=== PATIENT | male | born 1965 | race Caucasian/White ===

== ENCOUNTER 2020-09-23 18:09 | Inpatient (IN) | payer OTHER ==
[2020-09-23 19:03] VITALS: BMI 28.8
[2020-09-23] MEDS ORDERED: ACETAMINOPHEN 325 MG TABLET (FP) PO PRN ×2 (20:21)
[2020-09-23] MEDS ORDERED: MAG HYDROX/AL HYDROX/SIMETH 30 ML UNIT-DOSE CUP PO PRN (20:21)
[2020-09-23] MEDS ORDERED: MENTHOL/PHENOL 1 EACH UD MM PRN (20:21)
[2020-09-23] MEDS ORDERED: MAGNESIUM HYDROX 2400MG/30ML ORAL SUSPENSION 30 ML CUP PO PRN (20:21)
[2020-09-23] MEDS ORDERED: MAGNESIUM CITRATE 300 ML BOTTLE PO PRN (20:21)
[2020-09-23] MEDS ORDERED: IBUPROFEN 400 MG TABLET (FP) PO PRN (20:21)
[2020-09-23] MEDS ORDERED: LORazepam 1 MG TABLET PO PRN ×2 (20:21→23:43)
[2020-09-23] MEDS ORDERED: diazePAM 5 MG TABLET PO SCH (23:00)
[2020-09-23] MEDS: ONDANSETRON *ODT* 4 MG TABLET SL PRN (23:09)
[2020-09-23] MEDS: LORazepam 2 MG TABLET PO SCH ×5 (23:10→23:52)
[2020-09-23] MEDS ORDERED: diazePAM 5 MG TABLET PO PRN (23:17)
[2020-09-23] MEDS: MELATONIN 5 MG TABLETS PO SCH (23:25)
[2020-09-23] MEDS: THIAMINE HCL 100 MG TABLET (FP) PO SCH (23:25)
[2020-09-24] MEDS ORDERED: LORazepam 1 MG TABLET PO PRN (00:07)
[2020-09-24] MEDS ORDERED: LORazepam 1 MG TABLET PO SCH ×2 (05:00)
[2020-09-24] MEDS: LORazepam 2 MG TABLET PO SCH ×4 (05:28→22:00)
[2020-09-24] MEDS: ONDANSETRON *ODT* 4 MG TABLET SL PRN (05:29)
[2020-09-24 10:07] LABS: ALBUMIN 3.5 g/dl (3.4-5.0); BLOOD UREA NITROGEN 8.9 mg/dL (7-18)
[2020-09-24 10:09] LABS: HEMOGLOBIN 13.9 GM/dL (11.7-16.9); MCH 36.1 pg (25.7-33.7); MCHC 33.8 g/dl (32.0-35.9); MEAN CELL VOLUME 106.6 fl (80-96); MEAN PLT VOLUME 8.5 fl (7.5-11.1); PLATELET COUNT 65 10^3/uL (134-434); RBC 3.85 M/mm3 (4.00-5.60); RDW 14.4 % (11.9-15.9); WHITE BLOOD COUNT 2.5 K/mm3 (4.0-10.0)
[2020-09-24 10:10] LABS: CALCIUM 7.7 mg/dL (8.5-10.1)
[2020-09-24 10:11] LABS: CREATININE 0.8 mg/dL (0.55-1.3)
[2020-09-24 10:13] LABS: TOT PROT 6.8 g/dl (6.4-8.2)
[2020-09-24] MEDS: PRENATAL VITAMINS W/ FOLIC ACID TABLET (FP) PO SCH (10:16)
[2020-09-24] MEDS: LISINOPRIL 5 MG TABLET PO SCH (10:16)
[2020-09-24] MEDS: PIOGLITAZONE HCL 30 MG TABLET PO SCH (10:45)
[2020-09-24] MEDS ORDERED: INSULIN SLIDING SCALE (NOVOLOG) 1 VIAL SQ SCH (11:00)
[2020-09-24] MEDS ORDERED: POTASSIUM CHLORIDE TABS 20 MEQ TABLET.ER (FP) PO ONE ×2 (11:29→11:32)
[2020-09-24] MEDS: BISMUTH SUBSALICYLATE 524 MG/30 ML PO PRN ×2 (12:58→17:28)
[2020-09-24] MEDS ORDERED: TRIMETHOBENZAMIDE HCL 200MG/2ML INJ IM PRN (15:49)
[2020-09-24] MEDS: METHOCARBAMOL 500 MG TABLET PO PRN (17:31)
[2020-09-24] MEDS ORDERED: traZODone HCL 50 MG TABLET (FP) PO ONE (20:46)
[2020-09-24] MEDS: THIAMINE HCL 100 MG TABLET (FP) PO SCH (21:59)
[2020-09-24] MEDS: MELATONIN 5 MG TABLETS PO SCH (21:59)
[2020-09-25] MEDS ORDERED: LORazepam 0.5 MG TABLET PO PRN ×2
[2020-09-25] MEDS ORDERED: LORazepam 0.5 MG TABLET PO SCH ×2 (05:00)
[2020-09-25] MEDS ORDERED: diazePAM 5 MG TABLET PO SCH (06:00)
[2020-09-25] MEDS: PIOGLITAZONE HCL 30 MG TABLET PO SCH (06:21)
[2020-09-25] MEDS: LORazepam 1 MG TABLET PO SCH ×4 (06:21→21:59)
[2020-09-25 10:19] LABS: HEMATOCRIT 42.5 % (35.4-49); HEMOGLOBIN 14.4 GM/dL (11.7-16.9); MCH 36.3 pg (25.7-33.7); MCHC 33.8 g/dl (32.0-35.9); MEAN CELL VOLUME 107.2 fl (80-96); MEAN PLT VOLUME 8.8 fl (7.5-11.1); PLATELET COUNT 71 10^3/uL (134-434); RBC 3.97 M/mm3 (4.00-5.60); RDW 14.5 % (11.9-15.9)
[2020-09-25 10:27] LABS: ALBUMIN 3.4 g/dl (3.4-5.0); BLOOD UREA NITROGEN 7.3 mg/dL (7-18); CALCIUM 7.8 mg/dL (8.5-10.1); MAGNESIUM 1.4 mg/dL (1.8-2.4)
[2020-09-25 10:30] LABS: PHOSPHOROUS 1.9 mg/dL (2.5-4.9)
[2020-09-25] MEDS: PRENATAL VITAMINS W/ FOLIC ACID TABLET (FP) PO SCH (10:31)
[2020-09-25] MEDS: LISINOPRIL 5 MG TABLET PO SCH (10:32)
[2020-09-25 10:33] LABS: BILIRUBIN,TOTAL 5.6 mg/dL (0.2-1); TOT PROT 6.8 g/dl (6.4-8.2)
[2020-09-25] MEDS: MAGNESIUM OXIDE 400 MG TABLET (FP) PO SCH ×2 (14:21→21:59)
[2020-09-25] MEDS: CALCIUM (OYSTER SHELL) 500 MG TABLET (FP) PO SCH ×2 (14:21→21:59)
[2020-09-25] MEDS: traZODone HCL 100 MG TABLET (FP) PO SCH (21:59)
[2020-09-25] MEDS: THIAMINE HCL 100 MG TABLET (FP) PO SCH (21:59)
[2020-09-25] MEDS: METHOCARBAMOL 500 MG TABLET PO PRN (23:33)
[2020-09-26] MEDS ORDERED: LORazepam 0.5 MG TABLET PO PRN
[2020-09-26] MEDS ORDERED: LORazepam 0.5 MG TABLET PO ONE ×2 (05:00)
[2020-09-26] MEDS: LORazepam 0.5 MG TABLET PO SCH ×4 (05:39→22:26)
[2020-09-26] MEDS ORDERED: diazePAM 5 MG TABLET PO SCH (06:00)
[2020-09-26] MEDS: PIOGLITAZONE HCL 30 MG TABLET PO SCH (06:40)
[2020-09-26] MEDS: GABAPENTIN 100 MG CAPSULE PO SCH (07:36)
[2020-09-26] MEDS: PRENATAL VITAMINS W/ FOLIC ACID TABLET (FP) PO SCH (10:31)
[2020-09-26] MEDS: ESCITALOPRAM OXALATE 10 MG TABLET PO SCH (10:31)
[2020-09-26] MEDS: LISINOPRIL 5 MG TABLET PO SCH (10:31)
[2020-09-26] MEDS: CALCIUM (OYSTER SHELL) 500 MG TABLET (FP) PO SCH ×2 (10:31→22:27)
[2020-09-26] MEDS: MAGNESIUM OXIDE 400 MG TABLET (FP) PO SCH ×2 (10:31→22:27)
[2020-09-26 10:45] LABS: CALCIUM 8.1 mg/dL (8.5-10.1); MAGNESIUM 1.6 mg/dL (1.8-2.4)
[2020-09-26 10:47] LABS: PHOSPHOROUS 3.4 mg/dL (2.5-4.9)
[2020-09-26] MEDS: METHOCARBAMOL 500 MG TABLET PO PRN (17:10)
[2020-09-26] MEDS: THIAMINE HCL 100 MG TABLET (FP) PO SCH (22:27)
[2020-09-26] MEDS: traZODone HCL 100 MG TABLET (FP) PO SCH (22:27)
[2020-09-27] MEDS: METHOCARBAMOL 500 MG TABLET PO PRN (00:53)
[2020-09-27] MEDS ORDERED: LORazepam 0.5 MG TABLET PO ONE (05:00)
[2020-09-27] MEDS ORDERED: diazePAM 5 MG TABLET PO ONE (06:00)
[2020-09-27] MEDS: PIOGLITAZONE HCL 30 MG TABLET PO SCH (06:07)
[2020-09-27] MEDS: GABAPENTIN 100 MG CAPSULE PO SCH (07:04)
[2020-09-27 07:08] VITALS: BP 153/96; PULSE 65; TEMP 97.3
[2020-09-27] MEDS: LISINOPRIL 5 MG TABLET PO SCH (09:11)
[2020-09-27] MEDS: CALCIUM (OYSTER SHELL) 500 MG TABLET (FP) PO SCH (09:11)
[2020-09-27] MEDS: MAGNESIUM OXIDE 400 MG TABLET (FP) PO SCH (09:11)
[2020-09-27] MEDS: ESCITALOPRAM OXALATE 10 MG TABLET PO SCH (09:12)
[2020-09-27] MEDS: PRENATAL VITAMINS W/ FOLIC ACID TABLET (FP) PO SCH (09:12)
== END 2020-09-27 09:39 | disposition home or self-care (01) | DRG 897 ==
LOC: YASAS 18:09 → Y3N 20:31
PROVIDERS: ADMIT Allergy & Immunology; ATTEND Allergy & Immunology
PROC: HZ2ZZZZ Detoxification Services for Substance Abuse Treatment (ICD-10-PCS; principal; 2020-09-23)
DX: F10.230 Alcohol dependence with withdrawal, uncomplicated (principal); F19.282 Other psychoactive substance dependence with psychoactive substance-induced sleep disorder; F19.280 Other psychoactive substance dependence with psychoactive substance-induced anxiety disorder; F19.24 Other psychoactive substance dependence with psychoactive substance-induced mood disorder; F32.9 Major depressive disorder, single episode, unspecified; F41.9 Anxiety disorder, unspecified; I10 Essential (primary) hypertension; K70.30 Alcoholic cirrhosis of liver without ascites; R74.8 Abnormal levels of other serum enzymes; R74.01 Elevation of levels of liver transaminase levels; R73.03 Prediabetes; Z86.69 Personal history of other diseases of the nervous system and sense organs; Z88.8 Allergy status to other drugs, medicaments and biological substances
CPT/HCPCS: 36415; 80053; 82310; 82962; 83735; 84100; 84450; 84460; 85027; 86780; 93005; 93010; C9803; Q0162; U0003; U0005

== ENCOUNTER 2021-11-06 08:15 | Inpatient (IN) | payer OTHER ==
[2021-11-06 09:11] VITALS: BMI 25.0
[2021-11-06] MEDS ORDERED: MAGNESIUM HYDROX 2400MG/30ML ORAL SUSPENSION 30 ML CUP PO PRN (10:05)
[2021-11-06] MEDS ORDERED: guaiFENesin 200 MG/10 ML 10 ML UNIT-DOSE CUPS PO PRN (10:05)
[2021-11-06] MEDS ORDERED: IBUPROFEN 400 MG TABLET (FP) PO PRN (10:05)
[2021-11-06] MEDS ORDERED: ACETAMINOPHEN 325 MG TABLET (FP) PO PRN (10:05)
[2021-11-06] MEDS ORDERED: MAG HYDROX/AL HYDROX/SIMETH 30 ML UNIT-DOSE CUP PO PRN (10:05)
[2021-11-06] MEDS ORDERED: P-EPHED 60MG/TRIPROLIDI 2.5MG TABLET PO PRN (10:05)
[2021-11-06] MEDS ORDERED: LOPERAMIDE HCL 2 MG CAPSULE PO PRN (10:05)
[2021-11-06] MEDS ORDERED: NICOTINE 10 MG CARTRIDGE (INHALER) IH PRN (10:05)
[2021-11-06] MEDS ORDERED: MAGNESIUM CITRATE 300 ML BOTTLE PO PRN (10:05)
[2021-11-06] MEDS: LISINOPRIL 5 MG TABLET PO SCH (13:11)
[2021-11-06] MEDS: PANTOPRAZOLE 40 MG TABLET PO SCH (13:11)
[2021-11-06] MEDS: FOLIC ACID 1 MG TABLET (FP) PO SCH (13:11)
[2021-11-06] MEDS: PRENATAL VITAMINS W/ FOLIC ACID TABLET (FP) PO SCH (13:11)
[2021-11-06] MEDS: NICOTINE 7 MG/24 HOURS TOPICAL PATCH TD SCH (13:12)
[2021-11-06] MEDS ORDERED: hydrOXYzine PAMOATE 25 MG CAPSULE (FP) PO SCH (14:00)
[2021-11-06 14:33] LABS: HEMATOCRIT 32.9 % (35.4-49); HEMOGLOBIN 11.1 GM/dL (11.7-16.9); MCH 34.8 pg (25.7-33.7); MCHC 33.6 g/dl (32.0-35.9); MEAN CELL VOLUME 103.5 fl (80-96); MEAN PLT VOLUME 7.6 fl (7.5-11.1); PLATELET COUNT 147 10^3/uL (134-434); RBC 3.18 M/mm3 (4.00-5.60); RDW 16.1 % (11.9-15.9); WHITE BLOOD COUNT 6.1 K/mm3 (4.0-10.0)
[2021-11-06 14:37] LABS: CALCIUM 9.2 mg/dL (8.5-10.1)
[2021-11-06 14:38] LABS: ALBUMIN 3.5 g/dl (3.4-5.0); BLOOD UREA NITROGEN 34.5 mg/dL (7-18)
[2021-11-06 14:41] LABS: CREATININE 1.7 mg/dL (0.55-1.3)
[2021-11-06 14:42] LABS: BILIRUBIN,TOTAL 0.4 mg/dL (0.2-1); TOT PROT 6.5 g/dl (6.4-8.2)
[2021-11-06] MEDS: URSODIOL 300 MG CAPSULE PO SCH ×2 (14:42→21:16)
[2021-11-06] MEDS: TACROLIMUS ANHYDROUS 1 MG CAPSULE PO SCH ×2 (14:42→21:16)
[2021-11-06] MEDS: DAPSONE 100 MG TABLET PO SCH (14:42)
[2021-11-06] MEDS: THIAMINE HCL 100 MG TABLET (FP) PO SCH ×2 (14:43→21:16)
[2021-11-06] MEDS: NALTREXONE HCL 50 MG TABLET PO SCH (14:54)
[2021-11-06] MEDS: CARVEDILOL 25 MG TABLET (FP) PO SCH ×2 (14:55→21:17)
[2021-11-06 15:01] LABS: SYPHILIS W/ RPR CONF NON-REACTIVE (NONREACTIVE)
[2021-11-06] MEDS: CALCIUM 250MG/VIT-D 125 UNITS 1 COMBO TABLET PO SCH (16:02)
[2021-11-06 17:41] LABS: PH,URINE 6.5 (5.0-8.0); URINE APPEARANCE CLEAR; URINE BILIRUBIN NEGATIVE (NEGATIVE); URINE COLOR YELLOW; URINE GLUCOSE (UA) NEGATIVE (NEGATIVE); URINE KETONE NEGATIVE (NEGATIVE); URINE LEUK ESTERASE NEGATIVE (NEGATIVE); URINE NITRITE NEGATIVE (NEGATIVE); URINE PROTEIN NEGATIVE (NEGATIVE); URINE UROBILINOGEN 0.2 mg/dL (0.2-1.0)
[2021-11-06] MEDS: MAGNESIUM OXIDE 400 MG TABLET (FP) PO SCH (18:47)
[2021-11-06] MEDS: busPIRone HCL 10 MG TABLET (FP) PO SCH (21:15)
[2021-11-06] MEDS: GABAPENTIN 100 MG CAPSULE PO SCH (21:15)
[2021-11-06] MEDS: MELATONIN 5 MG TABLETS PO SCH (21:16)
[2021-11-06] MEDS ORDERED: traZODone HCL 50 MG TABLET (FP) PO SCH (22:00)
[2021-11-07] MEDS: URSODIOL 300 MG CAPSULE PO SCH ×3 (06:58→21:03)
[2021-11-07] MEDS: PRENATAL VITAMINS W/ FOLIC ACID TABLET (FP) PO SCH (10:50)
[2021-11-07] MEDS: busPIRone HCL 10 MG TABLET (FP) PO SCH ×2 (10:50→21:03)
[2021-11-07] MEDS: NALTREXONE HCL 50 MG TABLET PO SCH (10:50)
[2021-11-07] MEDS: FOLIC ACID 1 MG TABLET (FP) PO SCH (10:50)
[2021-11-07] MEDS: LISINOPRIL 5 MG TABLET PO SCH (10:50)
[2021-11-07] MEDS: PANTOPRAZOLE 40 MG TABLET PO SCH (10:50)
[2021-11-07] MEDS: NICOTINE 7 MG/24 HOURS TOPICAL PATCH TD SCH (10:51)
[2021-11-07] MEDS: CARVEDILOL 25 MG TABLET (FP) PO SCH ×2 (10:51→21:04)
[2021-11-07] MEDS: CALCIUM 250MG/VIT-D 125 UNITS 1 COMBO TABLET PO SCH (10:51)
[2021-11-07] MEDS: MAGNESIUM OXIDE 400 MG TABLET (FP) PO SCH ×2 (10:51→18:25)
[2021-11-07] MEDS: DAPSONE 100 MG TABLET PO SCH (10:51)
[2021-11-07] MEDS: THIAMINE HCL 100 MG TABLET (FP) PO SCH ×2 (10:52→21:04)
[2021-11-07] MEDS: TACROLIMUS ANHYDROUS 1 MG CAPSULE PO SCH ×2 (10:55→21:05)
[2021-11-07] MEDS: CYANOCOBALAMIN (VITAMIN B-12) 100 MCG TABLET PO SCH (12:51)
[2021-11-07] MEDS: GABAPENTIN 100 MG CAPSULE PO SCH (21:03)
[2021-11-07] MEDS: traZODone HCL 100 MG TABLET (FP) PO SCH (21:04)
[2021-11-07] MEDS: MELATONIN 5 MG TABLETS PO SCH (21:04)
[2021-11-08] MEDS: URSODIOL 300 MG CAPSULE PO SCH ×3 (06:23→21:00)
[2021-11-08] MEDS: PRENATAL VITAMINS W/ FOLIC ACID TABLET (FP) PO SCH (10:15)
[2021-11-08] MEDS: DAPSONE 100 MG TABLET PO SCH (10:15)
[2021-11-08] MEDS: THIAMINE HCL 100 MG TABLET (FP) PO SCH ×2 (10:16→21:00)
[2021-11-08] MEDS: LISINOPRIL 5 MG TABLET PO SCH (10:16)
[2021-11-08] MEDS: TACROLIMUS ANHYDROUS 1 MG CAPSULE PO SCH ×2 (10:16→21:02)
[2021-11-08] MEDS: busPIRone HCL 10 MG TABLET (FP) PO SCH ×2 (10:16→21:01)
[2021-11-08] MEDS: FOLIC ACID 1 MG TABLET (FP) PO SCH (10:17)
[2021-11-08] MEDS: MAGNESIUM OXIDE 400 MG TABLET (FP) PO SCH ×2 (10:17→18:54)
[2021-11-08] MEDS: NICOTINE 7 MG/24 HOURS TOPICAL PATCH TD SCH (10:17)
[2021-11-08] MEDS: NALTREXONE HCL 50 MG TABLET PO SCH (10:17)
[2021-11-08] MEDS: PANTOPRAZOLE 40 MG TABLET PO SCH (10:17)
[2021-11-08] MEDS: CALCIUM 250MG/VIT-D 125 UNITS 1 COMBO TABLET PO SCH (10:17)
[2021-11-08] MEDS: CARVEDILOL 25 MG TABLET (FP) PO SCH ×2 (10:17→21:00)
[2021-11-08] MEDS: CYANOCOBALAMIN (VITAMIN B-12) 100 MCG TABLET PO SCH (10:18)
[2021-11-08] MEDS: GABAPENTIN 100 MG CAPSULE PO SCH (21:00)
[2021-11-08] MEDS: MELATONIN 5 MG TABLETS PO SCH (21:00)
[2021-11-08] MEDS: traZODone HCL 100 MG TABLET (FP) PO SCH (21:01)
[2021-11-09] MEDS: URSODIOL 300 MG CAPSULE PO SCH ×3 (06:02→21:13)
[2021-11-09] MEDS: NALTREXONE HCL 50 MG TABLET PO SCH (10:12)
[2021-11-09] MEDS: CALCIUM 250MG/VIT-D 125 UNITS 1 COMBO TABLET PO SCH (10:12)
[2021-11-09] MEDS: THIAMINE HCL 100 MG TABLET (FP) PO SCH ×2 (10:12→21:12)
[2021-11-09] MEDS: CYANOCOBALAMIN (VITAMIN B-12) 100 MCG TABLET PO SCH (10:12)
[2021-11-09] MEDS: PANTOPRAZOLE 40 MG TABLET PO SCH (10:12)
[2021-11-09] MEDS: PRENATAL VITAMINS W/ FOLIC ACID TABLET (FP) PO SCH (10:12)
[2021-11-09] MEDS: FOLIC ACID 1 MG TABLET (FP) PO SCH (10:12)
[2021-11-09] MEDS: busPIRone HCL 10 MG TABLET (FP) PO SCH ×2 (10:12→21:13)
[2021-11-09] MEDS: CARVEDILOL 25 MG TABLET (FP) PO SCH ×2 (10:12→21:13)
[2021-11-09] MEDS: LISINOPRIL 5 MG TABLET PO SCH (10:12)
[2021-11-09] MEDS: TACROLIMUS ANHYDROUS 1 MG CAPSULE PO SCH ×2 (10:13→21:13)
[2021-11-09] MEDS: DAPSONE 100 MG TABLET PO SCH (10:13)
[2021-11-09] MEDS: MAGNESIUM OXIDE 400 MG TABLET (FP) PO SCH ×2 (10:43→18:45)
[2021-11-09] MEDS: NICOTINE 7 MG/24 HOURS TOPICAL PATCH TD SCH (10:43)
[2021-11-09] MEDS: MELATONIN 5 MG TABLETS PO SCH (21:12)
[2021-11-09] MEDS: GABAPENTIN 100 MG CAPSULE PO SCH (21:13)
[2021-11-09] MEDS: traZODone HCL 100 MG TABLET (FP) PO SCH (21:13)
[2021-11-10] MEDS: URSODIOL 300 MG CAPSULE PO SCH ×3 (06:05→21:00)
[2021-11-10 06:48] VITALS: RESP 18
[2021-11-10] MEDS: DAPSONE 100 MG TABLET PO SCH (10:30)
[2021-11-10] MEDS: PRENATAL VITAMINS W/ FOLIC ACID TABLET (FP) PO SCH (10:30)
[2021-11-10] MEDS: CALCIUM 250MG/VIT-D 125 UNITS 1 COMBO TABLET PO SCH (10:31)
[2021-11-10] MEDS: PANTOPRAZOLE 40 MG TABLET PO SCH (10:31)
[2021-11-10] MEDS: NICOTINE 7 MG/24 HOURS TOPICAL PATCH TD SCH (10:31)
[2021-11-10] MEDS: NALTREXONE HCL 50 MG TABLET PO SCH (10:31)
[2021-11-10] MEDS: CYANOCOBALAMIN (VITAMIN B-12) 100 MCG TABLET PO SCH (10:31)
[2021-11-10] MEDS: LISINOPRIL 5 MG TABLET PO SCH (10:31)
[2021-11-10] MEDS: THIAMINE HCL 100 MG TABLET (FP) PO SCH ×2 (10:31→21:01)
[2021-11-10] MEDS: FOLIC ACID 1 MG TABLET (FP) PO SCH (10:31)
[2021-11-10] MEDS: CARVEDILOL 25 MG TABLET (FP) PO SCH ×2 (10:31→21:01)
[2021-11-10] MEDS: MAGNESIUM OXIDE 400 MG TABLET (FP) PO SCH ×2 (10:31→18:22)
[2021-11-10] MEDS: busPIRone HCL 10 MG TABLET (FP) PO SCH ×2 (10:31→21:01)
[2021-11-10] MEDS: TACROLIMUS ANHYDROUS 1 MG CAPSULE PO SCH ×2 (10:31→22:14)
[2021-11-10] MEDS: traZODone HCL 100 MG TABLET (FP) PO SCH (21:00)
[2021-11-10] MEDS: GABAPENTIN 100 MG CAPSULE PO SCH (21:01)
[2021-11-10] MEDS: MELATONIN 5 MG TABLETS PO SCH (21:01)
[2021-11-11] MEDS: URSODIOL 300 MG CAPSULE PO SCH ×2 (06:03→13:04)
[2021-11-11 09:21] VITALS: BP 141/98; PULSE 68; TEMP 97.7
[2021-11-11] MEDS: busPIRone HCL 10 MG TABLET (FP) PO SCH (10:14)
[2021-11-11] MEDS: CARVEDILOL 25 MG TABLET (FP) PO SCH (10:14)
[2021-11-11] MEDS: DAPSONE 100 MG TABLET PO SCH (10:14)
[2021-11-11] MEDS: FOLIC ACID 1 MG TABLET (FP) PO SCH (10:15)
[2021-11-11] MEDS: CALCIUM 250MG/VIT-D 125 UNITS 1 COMBO TABLET PO SCH (10:15)
[2021-11-11] MEDS: NICOTINE 7 MG/24 HOURS TOPICAL PATCH TD SCH (10:15)
[2021-11-11] MEDS: MAGNESIUM OXIDE 400 MG TABLET (FP) PO SCH (10:15)
[2021-11-11] MEDS: PRENATAL VITAMINS W/ FOLIC ACID TABLET (FP) PO SCH (10:15)
[2021-11-11] MEDS: LISINOPRIL 5 MG TABLET PO SCH (10:16)
[2021-11-11] MEDS: PANTOPRAZOLE 40 MG TABLET PO SCH (10:16)
[2021-11-11] MEDS: NALTREXONE HCL 50 MG TABLET PO SCH (10:16)
[2021-11-11] MEDS: TACROLIMUS ANHYDROUS 1 MG CAPSULE PO SCH (10:16)
[2021-11-11] MEDS: THIAMINE HCL 100 MG TABLET (FP) PO SCH (10:17)
[2021-11-11] MEDS: CYANOCOBALAMIN (VITAMIN B-12) 100 MCG TABLET PO SCH (10:17)
== END 2021-11-11 13:28 | disposition home or self-care (01) | DRG 895 ==
LOC: YASAS 08:15 → Y3W 11:52
PROVIDERS: ADMIT Allergy & Immunology; ATTEND Psychiatry & Neurology Pain Medicine
PROC: HZ42ZZZ Group Counseling for Substance Abuse Treatment, Cognitive-Behavioral (ICD-10-PCS; principal; 2021-11-06)
DX: F10.20 Alcohol dependence, uncomplicated (principal); Z94.4 Liver transplant status; F10.24 Alcohol dependence with alcohol-induced mood disorder; F10.280 Alcohol dependence with alcohol-induced anxiety disorder; F41.9 Anxiety disorder, unspecified; I10 Essential (primary) hypertension; R79.89 Other specified abnormal findings of blood chemistry; D55.3 Anemia due to disorders of nucleotide metabolism; K70.30 Alcoholic cirrhosis of liver without ascites; G47.00 Insomnia, unspecified; R73.03 Prediabetes; Z86.69 Personal history of other diseases of the nervous system and sense organs; Z87.891 Personal history of nicotine dependence; Z56.0 Unemployment, unspecified
CPT/HCPCS: 36415; 80053; 80197; 81003; 82962; 85027; 86780; 86803; 93005; 93010; C9803-CS; U0003; U0005